=== PATIENT | male | born 1990 | race Two or more races ===

== ENCOUNTER 2023-11-05 04:03 | Emergency (ER) | payer MEDICAID ==
[~2023-11-05] VITALS: Ht 180.3 cm; Wt 133.4 kg
[2023-11-05] MEDS: IBUPROFEN 800 MG TAB PO ONE (04:31)
[2023-11-05] MEDS ORDERED: BENZ200C64 PO (04:50)
[2023-11-05] MEDS ORDERED: IBUP-1455 PO (04:50)
[2023-11-05] MEDS ORDERED: PHEN-1045 PO (04:50)
[2023-11-05] MEDS ORDERED: CIPR500T4 PO (04:50)
[2023-11-05] MEDS ORDERED: ALBU108A5 IN (04:50)
[2023-11-05] MEDS: cefTRIAXone SOD 1,000 MG VL IM ONE (05:41)
[2023-11-05 05:46] VITALS: BP 115/75; PULSE 92; RESP 20; O2SAT 97
[2023-11-05 05:49] VITALS: TEMP 98.7
== END 2023-11-05 05:55 | disposition home or self-care (01) ==
LOC: ER 04:03
DX: N39.0 Urinary tract infection, site not specified (principal); R50.9 Fever, unspecified; R05.9 Cough, unspecified; F17.210 Nicotine dependence, cigarettes, uncomplicated; Z87.442 Personal history of urinary calculi
CPT/HCPCS: 87086; 96372; 99283; J0696